=== PATIENT | male | born 1990 | race Caucasian/White ===

== ENCOUNTER 2023-08-12 12:30 | Emergency (ER) | payer SELFPAY ==
[2023-08-12 12:44] VITALS: BP 132/90; PULSE 64; RESP 16; TEMP 36.4; O2SAT 100
--- NOTE | 2023-08-12 12:50 | ED.DIZZY ---
HPI - Dizziness General Chief Complaint: Dizziness Stated Complaint: feeling bad feet and hand numbness Focused HPI: Year old male with no past medical history presents to the emergency department for dizziness that occurred today while at work. Patient is reporting lightheadedness and nausea that is worse with standing up and ambulating. He denies chest pain but endorses some difficulty breathing. 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 He denies cough or congestion, vomiting. States he is also reporting numbness in his hands and his feet as well as paresthesias. Denies anxiety. GENERAL: Well-appearing, well-nourished, and in no acute distress. HEAD: Normocephalic, atraumatic. CHEST: Clear to auscultation. ?No respiratory distress. HEART: Regular rate and rhythm.? NEURO: ?Alert and oriented x3. Patient screened in triage and initial orders placed.? ?Additional care and disposition to be based upon?diagnostic testing and treatment. Related Data Allergies Allergy/AdvReac Type Severity Reaction Status Date / Time No Known Allergies Allergy Unverified 08/03/21 16:14 Course Vital Signs Vital signs: Vital Signs Temperature 97.6 F 08/12/23 12:44 Pulse Rate 64 08/12/23 12:44 Respiratory Rate 16 08/12/23 12:44 Blood Pressure 132/90 08/12/23 12:44 Pulse Oximetry 100 08/12/23 12:44 Oxygen Delivery Room Air 08/12/23 12:44 Temperature 97.6 F 08/12/23 12:44 Pulse Rate 64 08/12/23 12:44 Respiratory Rate 16 08/12/23 12:44 Blood Pressure 132/90 08/12/23 12:44 Pulse Oximetry 100 08/12/23 12:44 Oxygen Delivery Room Air 08/12/23 12:44 MDM - Dizziness MDM Narrative Medical decision making narrative: MSE by ALPHONSO in triage. Patient eloped out of the department with a steady gait. Discharge Plan Discharge Clinical Impression: Dizziness Patient Disposition: Elopement After Seen by Prov Condition: Stable Follow-up/Referrals: PHYSICIAN,HUMAN RESOURCES ASSOCIATE [Non-Staff] -
--- NOTE | 2023-08-12 13:11 | PC.NURSE ---
visitor for pt comes to intake and states whats the protocol for cancelling? taking someone off your list? She states pt is going to go to his primary.
== END 2023-08-12 14:17 | disposition left against medical advice (07) ==
LOC: ANHED 13:37
PROVIDERS: Emergency Provider Physician Assistant
DX: R42 Dizziness and giddiness (principal)
CPT/HCPCS: 99281